=== PATIENT | female | born 1970 | race Two or more races ===

== ENCOUNTER 2024-09-11 13:30 | Outpatient (CLI) | payer OTHER | END 2024-09-11 13:41 | disposition home or self-care (01) | LOC: RAD 13:30 | PROVIDERS: ATTEND Obstetrics & Gynecology | DX: R05.9 Cough, unspecified (principal) ==

== ENCOUNTER 2024-09-11 13:52 | Outpatient (CLI) | payer OTHER ==
[2024-09-14] MEDS ORDERED: EZALLOR SPRINKL10 MG PO (11:31)
[2024-09-14] MEDS ORDERED: COZAAR25 MG PO (11:31)
[2024-09-14] MEDS ORDERED: LEXAPRO5 MG (11:32)
[2024-09-14] MEDS ORDERED: MONJARO (11:32)
== END 2024-09-11 14:39 | disposition home or self-care (01) ==
LOC: EKG 13:52
PROVIDERS: ATTEND Obstetrics & Gynecology
DX: R07.9 Chest pain, unspecified (principal)

== ENCOUNTER 2024-09-19 08:33 | Day surgery (SDC) | payer OTHER ==
[~2024-09-19 08:33] MED LIST: COZAAR25 MG PO; EZALLOR SPRINKL10 MG PO; LEXAPRO5 MG; MONJARO
[2024-09-19] MEDS ORDERED: CEFAZOLIN SODIUM 1,000 MG VIAL ONE (12:17)
[2024-09-19] MEDS ORDERED: POVIDONE-IODINE 118 ML BOTT TOP ONE (12:25)
[2024-09-19] MEDS ORDERED: MORPHINE SULFATE 4 MG/ML VIAL IV PRN (13:15)
[2024-09-19] MEDS ORDERED: PROMETHAZINE HCL 50 MG/ML AMPUL IM ONE (13:15)
== END 2024-09-19 19:35 | disposition home or self-care (01) ==
LOC: CIR.AMB 08:33
PROVIDERS: ATTEND Obstetrics & Gynecology
DX: N90.89 Other specified noninflammatory disorders of vulva and perineum (principal); N90.7 Vulvar cyst; Z88.5 Allergy status to narcotic agent; Z91.013 Allergy to seafood